=== PATIENT | female | born 1995 | race African-American/Black ===

== ENCOUNTER 2017-08-09 12:37 | Emergency (ER) | payer SELFPAY ==
[~2017-08-09] VITALS: Ht 165.1 cm; Wt 72.0 kg
[~2017-08-09 12:37] MED LIST: CIPR500T4 PO
[2017-08-09 12:38] VITALS: BP 130/72; PULSE 85; RESP 18; TEMP 99.2; O2SAT 98
--- NOTE | 2017-08-09 13:11 | PD ---
HPI Chief Complaint: [employer] Problem/Complaint Time Seen by Provider: 13:11 Travel History International Travel<30 days: No Contact w/Intl Traveler<30days: No Traveled to known affect area: No History of Present Illness HPI 21-year-old female presents emergency Department with complaint of vaginal bleeding times one month. Reports going to 2-3 medium-size pads in a 24-hour period. Bleeding has lightened up since the beginning of onset. Denies abdominal pain, fevers, vomiting. Denies lightheadedness, dizziness, chest pain , shortness of breath. No history of irregular periods. History of prolonged periods 8-9 days on average. Has Implanon implant for control and has had for over one year. Denies dysuria, urinary frequency, change in stool. Last menstrual normal menstrual period was about 2 months ago. Does not have a dealer account manager or primary care provider in this area. Is from [facility], [place] and has primary care in the area. No known allergies. Denies past medical history. No other modifying factors or associated signs and symptoms. PFSH Past Medical History ?: Not Social History Alcohol Use: Yes (OCCASIONALLY) Tobacco Use: No Substance Use: No Allergies-Medications (Allergen,Severity, Reaction): Coded Allergies: No Known Allergies (Unverified Adverse Reaction, Unknown, 08/09/17) Reported Meds & Prescriptions Reported Meds & Active Scripts Active No Active Prescriptions or Reported Medications Review of Systems Except as stated in HPI: all other systems reviewed are Neg Physical Exam Narrative GENERAL: Well-nourished, well-developed black female patient, in no acute distress SKIN: Warm and dry. No rash. HEAD: Atraumatic. Normocephalic. EYES: Pupils equal and round. No scleral icterus. No injection or drainage. ENT: Mucosa pink and moist. NECK: Trachea midline. CARDIOVASCULAR: Regular rate and rhythm. No murmur appreciated. RESPIRATORY: No accessory muscle use. Clear to auscultation. Breath sounds equal bilaterally. GASTROINTESTINAL: Abdomen soft, non-tender, nondistended. Hepatic and splenic margins not palpable. Bowel sounds are active 4 quadrants. Bladder nontender and nondistended. MUSCULOSKELETAL: No obvious deformities. No clubbing. No cyanosis. No edema. BACK: No CVA tenderness NEUROLOGICAL: Awake and alert. Oriented 3. No obvious cranial nerve deficits. Motor grossly within normal limits. Normal speech. Moves all extremities. 5/5 strength to all extremities. PSYCHIATRIC: Appropriate mood and affect; insight and judgment normal. Data Data Last Documented VS Vital Signs Date Time Temp Pulse Resp B/P (MAP) Pulse Ox O2 Delivery O2 Flow Rate FiO2 08/09/17 16:20 08/09/17 12:38 99.2 85 18 98 Room Air Orders Orders Complete Blood Count With Diff (08/09/17 12:54) Ed Urine Pregnancytest Poc (08/09/17 12:54) Beta Hcg (Quant/Titer) (08/09/17 12:54) Ed Discharge Order (08/09/17 16:00) Labs Laboratory Tests Test 08/09/17 13:31 08/09/17 14:35 Human Chorionic Gonadotropin, Quant LESS THAN 1 MIU/ML White Blood Count 7.7 TH/MM3 Red Blood Count 4.30 MIL/MM3 Hemoglobin 13.4 GM/DL Hematocrit 40.1 % Mean Corpuscular Volume 93.3 FL Mean Corpuscular Hemoglobin 31.2 PG Mean Corpuscular Hemoglobin Concent 33.5 % Red Cell Distribution Width 12.9 % Platelet Count 175 TH/MM3 Mean Platelet Volume 12.1 FL CBC Comment AUTO DIFF Differential Total Cells Counted 100 Neutrophils % (Manual) 73 % Band Neutrophils % 1 % Lymphocytes % 21 % Monocytes % 4 % Eosinophils % 1 % Neutrophils # (Manual) 5.7 TH/MM3 Differential Comment FINAL DIFF MANUAL Platelet Estimate NORMAL Platelet Morphology Comment CLUMPED Red Cell Morphology Comment NORMAL MDM Medical Decision Making Medical Screen Exam Complete: Yes Emergency Medical Condition: Yes Medical Record Reviewed: Yes Differential Diagnosis Menorrhagia, prolonged period, Narrative Course 21-year-old female with prolonged menstrual cycle. Physical exam is unremarkable. I discussed patient with Dr. Mc, my attending physician, and she agrees with my plan of care. CBC, beta-hCG, UPT ordered. 1559: CBC unremarkable. Hemoglobin 13.4. Beta hCG less than 1. Dr. Lofton agrees with discharge. Instructed patient follow-up with dealer account manager. Follow- up resources provided. Instructed patient to follow up with primary care provider. Patient verbalizes understanding and agreement with treatment plan. Patient is medically cleared and stable for discharge. Discussed reasons to return to the emergency department. Patient agrees with treatment plan. The patients vital signs are stable and the patient is stable for outpatient follow- up and treatment. Patient discharged home, stable and in no acute distress. Diagnosis Primary Impression: Prolonged menstrual cycle Referrals: [facility] Department Worker [facility] Patient Instructions: General Instructions, Menorrhagia (ED) Additional Instructions: Follow-up with primary care provider Follow-up with dealer account manager Return to emergency department immediately with worsening of symptoms Med/Other Pt SpecificInfo: No Change to Meds, No Meds Exist/No RX given Scripts No Active Prescriptions or Reported Meds Disposition: 01 DISCHARGE HOME Condition: Stable Lillie Barker Aug 09, 2017 13:11
[2017-08-09 14:16] LABS: BETA HCG QUANT LESS THAN 1 MIU/ML (0-5)
[2017-08-09 14:55] LABS: HEMATOCRIT 40.1 % (35.0-46.0); MEAN CELL VOLUME 93.3 FL (80.0-100.0); MEAN CORPUSCULAR HEMOGLOBIN 31.2 PG (27.0-34.0); MEAN CORPUSCULAR HGB CONC 33.5 % (32.0-36.0); PLATELET COUNT 175 TH/MM3 (150-450); RED CELL DISTRIBUTION WIDTH 12.9 % (11.6-17.2); WHITE BLOOD COUNT 7.7 TH/MM3 (4.0-11.0)
[2017-08-09 15:45] LABS: HEMO FLAGS AUTO DIFF
[2017-08-09 15:47] LABS: BANDS 1 % (0-6); EOSINOPHILS 1 % (0-4); NEUTROPHIL # MANUAL DIFF 5.7 TH/MM3 (1.8-7.7); POLYS (SEG NEUTROPHILS) 73 % (16-70); WBC DIFF SAMPLE 100
[2017-08-09 15:48] LABS: PLATELET ESTIMATE SMEAR NORMAL (NORMAL); PLATELET MORPHOLOGY CLUMPED (NORMAL); SCAN/DIFF FINAL DIFF MANUAL
== END 2017-08-09 16:21 | disposition home or self-care (01) ==
LOC: NEPD 12:37
DX: N93.8 Other specified abnormal uterine and vaginal bleeding (principal); Z32.02 Encounter for pregnancy test, result negative
CPT/HCPCS: 84702; 84703; 85007; 85027; 99284